=== PATIENT | female | born 1950 | race Caucasian/White ===

== ENCOUNTER 2017-01-28 05:24 | Observation (INO) | payer MEDICARE, OTHER ==
--- NOTE | ~2017-01-28 | DS ---
Discharge Summary [facility] [address] [place]. [address] NAME: SAKSHI HERNANDEZ : 46 STATUS : DIS Sonya PAT#: [id number] AGE: 66 ADM/REG DATE : 01/28/17 MR#: [id number] REPORT SERV DATE: 01/30/17 DICTATED BY: TRACEE FRIEDMAN DATE: 01/29/17 REPORT STATUS : Draft TRANSCRIBED BY: MODL DATE: 01/29/17 ADMISSION DATE: 01/28/2017 DISCHARGE DATE: 01/29/2017 DISCHARGE DIAGNOSES: 1. Hyponatremia from hypovolemia, replaced. 2. Diverticulitis, acute, improved when treated, and the patient is tolerating a soft diet without any problem. 3. BMI 44.9. 4. Hypertension, Norvasc was added on this admission. HISTORY OF PRESENT ILLNESS: This is a 66-year-old female patient, who came to the hospital with dizziness and nausea with a recent diagnosis of diverticulitis treatment. Please see dictated H and P. HOSPITAL COURSE: 1. She was admitted to hospital with hypovolemic hyponatremia, was placed on hydration and improved. 2. Also at the same time, she was treated with diverticulitis. Now, she is able to tolerate her soft diet without any problem. Her sodium went up to 131 today. She is on thiazide treatment; however, her hyponatremia was more related with hypovolemia issue. Therefore, we are going to continue the hydrochlorothiazide for her hypertension treatment. Meanwhile, when she was here, her blood pressure is noted to be uncontrolled. Norvasc was added on this admission. We would like her to continue to use Norvasc for her hypertension management. I explained to the patient about her current treatment, diet instruction, and followup plan, and she voiced understanding. TIME SPENT: More than 30 minutes. DISCHARGE MEDICATIONS: Norvasc 5 mg twice a day. Continue all other home medications including Tylenol as needed, Zantac 300 mg oral once at nighttime, Ultram as needed, Diovan 320 mg once a day, hydrochlorothiazide 25 mg once a day, and Zofran as needed. DISPOSITION: The patient is discharged to home in stable condition. EKL/MODL Tracee Friedman M.D. / [id number] CC: Law Mejia MD Discharge Summary [address] [address] NAME: SAKSHI HERNANDEZ : 46 STATUS : DIS Sonya PAT#: [id number] AGE: 66 ADM/REG DATE : 01/28/17 MR#: [id number] REPORT SERV DATE: 01/30/17 DICTATED BY: TRACEE FRIEDMAN DATE: 01/29/17 REPORT STATUS : Draft TRANSCRIBED BY: MODL DATE: 01/29/17 Katty Rowland M.D.
--- NOTE | ~2017-01-28 | HP ---
History And Physical [address] [place]. [address] NAME: SAKSHI HERNANDEZ : 46 STATUS : ADM Sonya PAT#: [id number] AGE: 66 ADM/REG DATE : 01/28/17 MR#: [id number] REPORT SERV DATE: 01/28/17 DICTATED BY: JANET NEVILLE DATE: 01/28/17 REPORT STATUS : Draft TRANSCRIBED BY: MODL DATE: 01/28/17 DATE OF ADMISSION: 01/28/2017 CHIEF COMPLAINT: A 66-year-old female presenting with difficult recovery from diverticulitis with intractable nausea, vomiting, poor appetite, and evidence of hyponatremia. HISTORY OF PRESENT ILLNESS: The patient's history was obtained through careful interview with the patient and , coupled with review [facility]. The patient states that a little more than a week ago she began to develop left lower quadrant abdominal pain and nausea. She presented to the emergency department on 01/22/[address] was [address] CT scan with acute diverticulitis, was started on ciprofloxacin and Flagyl. She was discharged home and was considered good condition, but she has just felt increasingly sick ever since that time with intractable nausea, vomiting, and decreased appetite. On the good side of things, the patient has felt less and less abdominal pain until she states it is completely subsided now. She described earlier this week left lower quadrant abdominal pain without radiation as mentioned, though it is completely subsided. She denies any shortness of breath. No fevers or chills. No diarrhea. The last two days, she has felt diaphoretic, shaky, had weakness in her legs, and felt "out of sorts," finally reached to a point where she felt she had to come into the hospital. She has had occasional palpitations. No chest pain. No lightheadedness. REVIEW OF SYSTEMS: Otherwise, a 14-point review of systems was obtained and was negative. PAST MEDICAL HISTORY: 1. Hypertension. 2. Anemia. 3. Gastroesophageal reflux disorder. 4. A negative cardiac stress test, 2008. PAST SURGICAL HISTORY: 1. Back surgery by Dr. Romo. 2. Right knee surgery. 3. Right tear duct surgery. 4. Hysterectomy. History And Physical [address] [address] NAME: SAKSHI HERNANDEZ : 46 STATUS : ADM Sonya PAT#: [id number] AGE: 66 ADM/REG DATE : 01/28/17 MR#: [id number] REPORT SERV DATE: 01/28/17 DICTATED BY: JANET NEVILLE DATE: 01/28/17 REPORT STATUS : Draft TRANSCRIBED BY: KATHIA DATE: 01/28/17 ALLERGIES: PENICILLIN AND LATEX. SOCIAL HISTORY: She is to her for 50 years, he is a fast food delivery driver. They live in [place], [place]. They have children. One daughter works for [employer]. No tobacco abuse. No alcohol abuse. FAMILY HISTORY: Mother with congestive heart failure. Brother with coronary artery disease. CURRENT MEDICATIONS: Ciprofloxacin, Flagyl, valsartan, aspirin, Tylenol, metoprolol, ranitidine, tramadol. PHYSICAL EXAMINATION: VITAL SIGNS: Temperature 98.6, pulse 75, blood pressure 153/85, respiratory rate 16, O2 saturation 98% on room air. GENERAL: An ill-appearing female, but in no evidence of acute distress. She just appears somewhat listless and weak. HEENT: Pupils equal, round, and reactive to light. No conjunctival pallor. No scleral icterus. Nares patent. Oropharynx is clear of obstruction. Very dry mucous membranes with cracking of the lips and tongue. NECK: Trachea midline. No thyromegaly. LYMPH: No cervical lymphadenopathy. No supraclavicular lymphadenopathy. RESPIRATORY: Clear to auscultation at bases. No wheezes, rales, or rhonchi. Normal respiratory effort. CARDIOVASCULAR: Regular rate and rhythm. No murmurs, rubs, or gallops. No extremity edema is appreciated. ABDOMEN: Completely soft. No tenderness at all. No hepatosplenomegaly. DERMATOLOGICAL: Warm and dry. EXTREMITIES: No pallor, no cyanosis. PSYCHIATRIC: A flat affect, but claims to be in a good mood. Alert and oriented x3. LABORATORY DATA: White blood cell count 8.9, hemoglobin 10, hematocrit 31, platelets 380. Sodium 125 from a baseline sodium of 139 just on 01/22/2017, potassium 3.5, chloride 88, bicarb 25, BUN 15, creatinine 1.13, glucose 127. Troponin negative. INR 1.1. STUDIES: 1. Chest x-ray by my own evaluation shows no acute cardiopulmonary process. 2. EKG by my own evaluation shows sinus rhythm, no major abnormalities. ASSESSMENT AND PLAN: 1. Hyponatremia. This is a hypovolemic hyponatremia by history and exam; seems to be secondary to nausea, vomiting, and poor oral intake over the last week. Place on IV fluids. Monitor closely. Check SIADH studies, nonetheless. 2. Diverticulitis, but no abdominal pain now. We will switch to IV Levaquin and IV Flagyl while in the hospital and monitor symptoms. History And Physical [address] [address] NAME: SAKSHI HERNANDEZ : 46 STATUS : ADM Sonya PAT#: [id number] AGE: 66 ADM/REG DATE : 01/28/17 MR#: [id number] REPORT SERV DATE: 01/28/17 DICTATED BY: JANET NEVILLE DATE: 01/28/17 REPORT STATUS : Draft TRANSCRIBED BY: MODAkilah DATE: 01/28/17 KPL/KATHIA Janet Neville M.D. / [id number] CC: Devaughn Dudley M.D.
[2017-01-28 04:19] LABS: BASOPHILS 0.1 %; BASOPHILS ABSOLUTE 0.01 10/3/uL (0.0-0.16); EOSINOPHILS 0.2 %; EOSINOPHILS ABSOLUTE 0.02 10/3/uL (0.0-0.53); ER CBC TAT 0 Hrs 18 Mins; HEMOGLOBIN 10.9 g/dL (12.0-16.0); IMMATURE GRANULOCYTES 0.1 %; IMMATURE GRANULOCYTES ABSOLUTE 0.01 10/3/uL (0.0-0.11); LYMPHOCYTES 26.9 %; MEAN CORPUSCULAR HEMOGLOB 29.4 pg (26.0-34.0); MEAN PLATELET VOLUME 9.1 fL (9.2-13.0); MONOCYTES 13.4 %; NEUTROPHILS 59.3 %; NEUTROPHILS ABSOLUTE 5.29 10/3/uL (2.02-8.40); PLATELET COUNT 380 10/3/uL (150-400); RBC DISTRIBUTION WIDTH 13.4 % (12.0-16.0); RED CELL COUNT 3.71 10/6/uL (4.0-5.6); WHITE BLOOD CELLS 8.9 10/3/uL (4.5-10.5)
[2017-01-28 04:21] LABS: HEMATOCRIT 31.6 % (36.0-48.0); MANUAL DIFF NO %; MEAN CORPUS HGB CONC 34.5 g/dL (32.0-36.0); MEAN CORPUSCULAR VOLUME 85.2 fL (80-100)
[2017-01-28 04:26] LABS: INTERNATIONAL NORMAL RATI 1.1 UNITS (-); PARTIAL THROMBO TIME 35.6 SEC (22.5-37.2); PROTIME (NOT ORD) 14.3 SEC (12.0-14.5)
[2017-01-28 04:30] LABS: BUN (BLOOD UREA NITROGEN) 15 MG/DL (6-23); CALCIUM, SERUM 8.9 MG/DL (8.5-10.4); CHLORIDE, SERUM 88 MMOL/L (96-112); CO2 (CARBON DIOXIDE) 24 MMOL/L (24-34); CREATININE 1.13 MG/DL (0.55-1.02); GFR AFRICAN AMERICAN 58 ML/MIN (>=60); GFR NON AFRICAN AMERICAN 50 ML/MIN (>=60); GLUCOSE, SERUM 127 MG/DL (60-99); POTASSIUM, SERUM 3.5 MMOL/L (3.5-5.3); SODIUM, SERUM 125 MMOL/L (135-148)
[2017-01-28 04:32] LABS: CHEST PAIN PROFILE TAT 0 Hrs 31 Mins; TROPONIN I 0.02 NG/ML (<0.05)
[~2017-01-28 05:24] MED LIST: ACET500CAP PO; ASAB PO; BIST PO; COZAAR100 MG PO; DIOVAN320 MG PO; HCTZ25B PO; HYDROCHLOROT25 MG PO; MSCONT15 PO; NAP500 PO; NEUR300 PO; NORCO1 TA2 PO; NORV5 PO; PERCOCET1 TA4 PO; TYLENOL ARTH650 MG PO; Tylenol Arthritis PO; ULTRAM50 PO; V2 PO; ZANTAC300 MG PO; ZESTORETIC1 TA1 PO; [UNRECOGNIZED DRUG - OTHER] TOP
[2017-01-28] MEDS ORDERED: ASAB PO ×2 (06:04→07:29)
[2017-01-28] MEDS ORDERED: ULTRAM50 PO ×2 (06:07→07:30)
[2017-01-28] MEDS ORDERED: HYDROCHLOROT25 MG PO (07:30)
[2017-01-28] MEDS ORDERED: DIOVAN320 MG PO (07:30)
[2017-01-28] MEDS ORDERED: 8 HOUR650 MG PO (07:30)
[2017-01-28] MEDS ORDERED: ZANTAC300 MG PO (07:30)
[2017-01-28] MEDS ORDERED: ZOFRAN4 PO (07:31)
[2017-01-28] MEDS ORDERED: FLAG500TAB PO (07:31)
[2017-01-28] MEDS ORDERED: CIP5 PO (07:31)
[2017-01-28 11:59] LABS: BASOPHILS 0.3 %; BASOPHILS ABSOLUTE 0.02 10/3/uL (0.0-0.16); EOSINOPHILS 0.4 %; EOSINOPHILS ABSOLUTE 0.03 10/3/uL (0.0-0.53); HEMATOCRIT 30.5 % (36.0-48.0); HEMOGLOBIN 10.5 g/dL (12.0-16.0); IMMATURE GRANULOCYTES 0.1 %; IMMATURE GRANULOCYTES ABSOLUTE 0.01 10/3/uL (0.0-0.11); LYMPHOCYTES ABSOLUTE 1.77 10/3/uL (0.67-4.30); MEAN CORPUS HGB CONC 34.4 g/dL (32.0-36.0); MEAN CORPUSCULAR HEMOGLOB 29.3 pg (26.0-34.0); MEAN CORPUSCULAR VOLUME 85.2 fL (80-100); MEAN PLATELET VOLUME 8.8 fL (9.2-13.0); MONOCYTES 16.4 %; MONOCYTES ABSOLUTE 1.16 10/3/uL (0.21-1.20); NEUTROPHILS 57.8 %; PLATELET COUNT 309 10/3/uL (150-400); RBC DISTRIBUTION WIDTH 13.4 % (12.0-16.0); RED CELL COUNT 3.58 10/6/uL (4.0-5.6); WHITE BLOOD CELLS 7.1 10/3/uL (4.5-10.5)
[2017-01-28 12:00] LABS: MANUAL DIFF NO %
[2017-01-28 12:07] LABS: INTERNATIONAL NORMAL RATI 1.1 UNITS (-); PARTIAL THROMBO TIME 34.3 SEC (22.5-37.2); PROTIME (NOT ORD) 14.5 SEC (12.0-14.5)
[2017-01-28 12:24] LABS: A/G RATIO 0.8 (0.7-1.9); ALKALINE PHOSPHATASE 68 U/L (45-117); BUN (BLOOD UREA NITROGEN) 11 MG/DL (6-23); CALCIUM, SERUM 8.5 MG/DL (8.5-10.4); CHLORIDE, SERUM 95 MMOL/L (96-112); CO2 (CARBON DIOXIDE) 25 MMOL/L (24-34); CREATININE 0.99 MG/DL (0.55-1.02); GFR AFRICAN AMERICAN 68 ML/MIN (>=60); GFR NON AFRICAN AMERICAN 59 ML/MIN (>=60); GLOBULIN 3.8 G/DL (2.5-4.1); GLUCOSE, SERUM 104 MG/DL (60-99); POTASSIUM, SERUM 3.9 MMOL/L (3.5-5.3); SGOT(AST) 21 U/L (5-40); SGPT(ALT) 15 U/L (5-65); SODIUM, SERUM 129 MMOL/L (135-148); TOTAL BILIRUBIN 1.1 MG/DL (0-1.2); TOTAL PROTEIN 6.8 G/DL (6.0-8.5)
[2017-01-28 19:52] LABS: CREATININE, URINE 21.9 MG/DL
[2017-01-29 05:44] LABS: BASOPHILS 0.1 %; BASOPHILS ABSOLUTE 0.01 10/3/uL (0.0-0.16); EOSINOPHILS 0 %; HEMATOCRIT 32.2 % (36.0-48.0); IMMATURE GRANULOCYTES 0.3 %; IMMATURE GRANULOCYTES ABSOLUTE 0.02 10/3/uL (0.0-0.11); LYMPHOCYTES 15.9 %; MEAN CORPUS HGB CONC 34.2 g/dL (32.0-36.0); MEAN CORPUSCULAR HEMOGLOB 28.9 pg (26.0-34.0); MEAN CORPUSCULAR VOLUME 84.7 fL (80-100); MEAN PLATELET VOLUME 8.9 fL (9.2-13.0); MONOCYTES 10.3 %; MONOCYTES ABSOLUTE 0.78 10/3/uL (0.21-1.20); NEUTROPHILS 73.4 %; NEUTROPHILS ABSOLUTE 5.54 10/3/uL (2.02-8.40); PLATELET COUNT 360 10/3/uL (150-400); RBC DISTRIBUTION WIDTH 13.8 % (12.0-16.0); WHITE BLOOD CELLS 7.6 10/3/uL (4.5-10.5)
[2017-01-29 05:48] LABS: MANUAL DIFF NO %
[2017-01-29 05:56] LABS: BUN (BLOOD UREA NITROGEN) 10 MG/DL (6-23); CALCIUM, SERUM 9.2 MG/DL (8.5-10.4); CHLORIDE, SERUM 99 MMOL/L (96-112); CO2 (CARBON DIOXIDE) 21 MMOL/L (24-34); CREATININE 1.08 MG/DL (0.55-1.02); GFR AFRICAN AMERICAN 61 ML/MIN (>=60); GFR NON AFRICAN AMERICAN 53 ML/MIN (>=60); POTASSIUM, SERUM 3.7 MMOL/L (3.5-5.3); SODIUM, SERUM 131 MMOL/L (135-148)
[2017-01-29 05:58] LABS: GLUCOSE, SERUM 126 MG/DL (60-99)
[2017-01-29] MEDS ORDERED: NORV5 PO (11:23)
== END 2017-01-29 12:02 | disposition home or self-care (01) ==
LOC: ER 05:24 → ER/OF 05:39 → 5NO 06:36
PROVIDERS: Hospitalist; Internal Medicine; Specialist
DX: E87.1 Hypo-osmolality and hyponatremia (principal); K57.92 Diverticulitis of intestine, part unspecified, without perforation or abscess without bleeding; E66.9 Obesity, unspecified; I10 Essential (primary) hypertension; D64.9 Anemia, unspecified; M19.90 Unspecified osteoarthritis, unspecified site; K21.9 Gastro-esophageal reflux disease without esophagitis; Z88.0 Allergy status to penicillin; Z68.41 Body mass index [BMI] 40.0-44.9, adult; Z91.040 Latex allergy status; Z90.710 Acquired absence of both cervix and uterus; Z98.890 Other specified postprocedural states
CPT/HCPCS: 71020; 80048; 80053; 82150; 82570; 83690; 83735; 83935; 84300; 84443; 84484; 85025; 85610; 85730; 93005; 96365; 96366; 96372; 96375; 96376; 99285; A9270-GY; G0378; J0360; J1956; J2405; J2930